=== PATIENT | female | born 1970 | race Caucasian/White ===

== ENCOUNTER 2017-01-17 15:45 | Day surgery (SDC) | payer OTHER ==
[~2017-01-17] VITALS: Ht 160 cm; Wt 88.0 kg
[~2017-01-17 15:45] MED LIST: ACCUTANE PO; CARAFATE 1GM TAB1 GM PO; CARDIZEM GENERI30 MG PO; DITROPAN XL10 M1 PO; EFFEXOR XR150 MG PO; ETODOLAC400 MG PO; FLEXERIL5 MG PO; LASIX 40MG. TAB40 MG PO; LIPITOR10 MG PO; LORTAB 10/3251 TAB PO; LORTAB 500 MG-71 TAB PO; METOPROLOL25 MG PO; NICOTINE PATCH;21 MG TD; NITROSTAT0.4 MG SL; NORCO 325 MG-101 TAB PO; NORCO 325 MG-51 TAB PO; PERCOCET 5/3251 EACH PO; PERCOCET1 TAB PO; PLAVIX 75MG TAB75 MG PO; PRAVASTATIN 40M40 MG PO; PREDNISONE20 MG PO; PRILOSEC40 MG PO; PROAIR HFA0.09 MG/AC IH; PROTONIX 40MG T40 MG PO; PROZAC20 MG PO; PROZAC40 MG PO; REQUIP0.25 MG PO; TESSALON PERLE100 M1 PO; TOPIRAMATE 25MG25 MG PO; VALIUM 5MG TABLE5 MG PO; VICODIN 7.5/501 EACH PO; [UNRECOGNIZED DRUG - OTHER] PO
[2017-01-17 15:46] VITALS: BP 98/60
[2017-01-17] MEDS ORDERED: POTASSIUM CHLO20 ME2 PO (15:50)
[2017-01-17 15:56] VITALS: BP 100/64; BP 98/60
--- NOTE | 2017-01-17 16:05 | Procedure Note ---
Procedure detail Date of procedure: 01/17/17 Anesthesiologist: Wilton rowell CRNA Complications: None. Pre-procedure diagnosis: Lumbar back pain. Bilateral hip pain. Post-procedure diagnosis: Same. Indications for procedure: This patient's pleasant 46-year-old white female we've been treating her pain clinic for chronic low back pain that she describes as constant, dull, aching. Also bilateral hip pain. Patient is status post LEFT SI joint injection. This rendered mild relief. Patient continue to complain of bilateral hip pain that she describes as constant, dull, aching. However, her lumbar MRI is negative. We will try lumbar epidural steroid injection L4-5. Procedure detail: Procedure: Lumbar epidural steroid injection under fluoroscopy Informed consent was obtained and the risks and benefits of the procedure were explained to the patient. The patient was taken to the procedure room and noninvasive monitors placed, including noninvasive blood pressure cuff and pulse oximeter. The back was viewed using C-arm Fluoroscopy and prepped using Betadine as a cleansing solution and the L4-L5 interspace was palpated. Skin and subcutaneous tissues were anesthetized using lidocaine 1.5% and a 25-gauge needle. After this, an 18-gauge Touhy epidural needle was placed into the L4-L5 interspace and advanced using fluoroscopic guidance and loss of resistance to air until the epidural space was encountered. After confirmation of needle placement in the epidural space, with dye, a solution containing lidocaine 1.5%, 4 mL and Depo-Medrol 80 mg were incrementally injected into the lumbar epidural space. The patient tolerated the procedure well with no complications. The patient was observed in the Pain Clinic and then discharged home neurologically intact. Plan and disposition: Patient follow up with us in the pain clinic for further evaluation. at [id number]
[2017-01-17 16:07] VITALS: BP 106/65
== END 2017-01-17 16:10 | disposition home or self-care (01) ==
LOC: PM 15:45
PROC: 3E0R33Z Introduction of Anti-inflammatory into Spinal Canal, Percutaneous Approach (ICD-10-PCS; principal; 2017-01-17)
PROC: 3E0R3BZ Introduction of Anesthetic Agent into Spinal Canal, Percutaneous Approach (ICD-10-PCS; 2017-01-17)
DX: M54.5 Low back pain (principal); M25.552 Pain in left hip; M25.551 Pain in right hip
CPT/HCPCS: J1040; Q9966